=== PATIENT | male | born 2000 | race Caucasian/White ===

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

== ENCOUNTER → 2022-05-24 | Outpatient (CLI) | payer BC ==
[2022-05-24 23:56] LABS: Basophils # (A) 0.06 X 10*3/uL (0.00-0.10); Basophils % (A) 1.2 %; Eosinophils # (A) 0.09 X 10*3/uL (0.04-0.35); Eosinophils % (A) 1.8 %; HCT 44.8 % (39.6-50.0); HGB 15.1 g/dL (13.0-17.0); Immature Grans, Automated 0 %; Lymphocytes # (A) 2.09 X 10*3/uL (0.90-5.00); Lymphocytes % (A) 42.3 %; MCH 29.5 pg (27.0-32.0); MCHC 33.7 g/dL (32.0-37.0); MCV 87.5 fL (80.0-97.0); Mean Platelet Volume 10.5 fL (9.5-12.2); Monocytes # (A) 0.52 X 10*3/uL (0.20-1.00); Monocytes % (A) 10.5 %; NRBC Per 100 WBC 0 /100 WBCS (0.0-0.0); Neutrophils # (A) 2.18 X 10*3/uL (1.80-7.70); Neutrophils % (A) 44.2 %; Platelet Count 245 X 10*3/uL (140-440); RBC 5.12 X 10*6/uL (4.40-5.60); RDW 11.9 % (11.5-14.5); WBC 4.94 X 10*3/uL (4.50-10.00)
[2022-05-25 07:24] LABS: Appearance,Urine Clear (Clear); Bilirubin,Urine Negative (Negative); Blood,Urine Negative (Negative); Color,Urine Dark Yellow (Yellow); Ketones,Urine Trace mg/dL (Negative); Nitrite,Urine Negative (Negative); PH, Urine 6.5 (5.0-8.0); Specific Gravity,Urine 1.029 (1.001-1.030)
[2022-05-25 08:12] LABS: African American GFR (CKD) 112.7 (60.0-200.0); Albumin 4.6 g/dL (3.8-4.9); Albumin/Globulin Ratio 2.31 (1.60-3.17); Anion Gap 11.8 mmol/L (10.00-18.00); BUN/Creat Ratio 12.2 Ratio (12.00-20.00); Blood Urea Nitrogen 13.3 mg/dL (9.0-27.0); Calcium 9.7 mg/dL (8.7-10.3); Carbon Dioxide 24.3 mmol/L (20.0-27.5); Non-African American GFR(CKD) 97.2 (60.0-200.0); Potassium 4.2 mmol/L (3.5-5.5); T4, Free (Free Thyroxine) 1.02 ng/dL (0.830-1.430); Total Bilirubin 0.6 mg/dL (0.30-1.20); Total Protein 6.5 g/dL (6.2-8.2)
== END | disposition home or self-care (01) ==
LOC: LABWHC1 09:29
PROVIDERS: ATTEND Psychiatry & Neurology Psychiatry
DX: F31.81 Bipolar II disorder (principal); I49.9 Cardiac arrhythmia, unspecified
CPT/HCPCS: 36415; 80053; 81001; 84436; 84439; 84443; 85025; 93005

== ENCOUNTER → 2022-05-29 | Outpatient (CLI) | payer BC | END | disposition home or self-care (01) | LOC: LABWHC1 07:21 | PROVIDERS: ATTEND Psychiatry & Neurology Psychiatry | DX: F31.81 Bipolar II disorder (principal) | CPT/HCPCS: 36415; 80178 ==

== ENCOUNTER 2022-09-13 21:02 | Inpatient (IN) | payer BC ==
--- NOTE | 2022-09-13 22:47 | ED ---
General Adult HPI - General Chief complaint: Psychiatric Symptoms Stated complaint: Mental health Time Seen by Provider: 09/13/22 21:43 Source: patient, family, RN notes reviewed, old records reviewed Mode of arrival: ambulatory Limitations: no limitations - History of Present Illness Initial comments: Patient is a 22-year-old male who presents emergency Department complaining of suicidal ideations. Has a history of bipolar disorder. Presents with his parents. The last 2 weeks has been having thoughts of trying to commit suicide. Unknown why. States he has a plan but is unwilling to discuss the plan with anyone. Denies any attempts. Denies any previous attempts. Denies any homicidal ideations, attempts, plans. Denies any visual or auditory hallucinations. No other acute complaints at this time. Presents for psychiatric evaluation. This required inpatient psychiatric admission previously. Does have a therapist and psychiatrist. Has been compliant with medications. Is cooperative. - Related Data Home Medications Medication Instructions Recorded Confirmed Beclomethasone Dipropionate [Qvar 2 puff INHALATION RT-BID 12/11/16 12/11/16 40 mcg] Methylphenidate HCl 40 mg PO DAILY 12/11/16 12/11/16 [Methylphenidate HCl ER] Allergies Allergy/AdvReac Type Severity Reaction Status Date / Time No Known Allergies Allergy Verified 12/19/17 12:13 Review of Systems ROS Statement: Those systems with pertinent positive or pertinent negative responses have been documented in the HPI. Review of Systems: CONST: Denies fever EYES: Denies blurry vision ENT: Denies nasal congestion C/V: Denies Chest pain RESP: Denies shortness of breath GI: Denies abdominal pain : Denies dysuria SKIN: Denies rash. MSK: Denies joint pain. NEURO: Denies headache PSYCH: Denies homicidal ideations/plans/attempts. Denies visual or auditory hallucinations. He endorses suicidal ideations, plans. Denies attempt. ROS Other: All systems not noted in ROS Statement are negative. Past Medical History Past Medical History: Asthma Additional Past Medical History / Comment(s): ADHD Past Surgical History: No Surgical Hx Reported Past Psychological History: ADD/ADHD Past Alcohol Use History: None Reported Past Drug Use History: None Reported General Exam - General Exam Comments Initial Comments: General: Appears in no acute distress. HEAD: Normal with no signs of head trauma. EYES: PERRLA, EOMI, conjunctiva normal, no discharge. ENT: Hearing grossly intact, normal oropharynx. RESPIRATORY: Clear breath sounds bilaterally. No wheezes, rales, or rhonchi. C/V: Regular rate and rhythm. S1 and S2 auscultated, peripheral pulses 2+ and intact throughout ABD: Abd is soft, nontender, nondistended EXT: no obvious deformity SKIN: No rashes or lesions observed on exposed skin. NEURO: Alert and oriented 4. GCS of 15. Limitations: no limitations Course Vital Signs 09/13/22 09/13/22 21:28 22:47 Temperature 98.4 F Pulse Rate 73 86 Respiratory 18 16 Rate Blood Pressure 127/67 130/80 O2 Sat by Pulse 98 98 Oximetry Medical Decision Making - Medical Decision Making Was pt. sent in by a medical professional or institution (, PA, CAR BODY MECHANIC, urgent care, hospital, or custodial...) When possible be specific @ -No Did you speak to anyone other than the patient for history (EMS, parent, family, police, friend...)? What history was obtained from this source @ -Patient's father and mother also provided patient's past medical history including psychiatric diagnosis, as well as a recent past medical history of increasing suicidal ideations. Did you review nursing and triage notes (agree or disagree)? Why? @ -I reviewed and agree with nursing and triage notes Were old charts reviewed (outside hosp., previous admission, EMS record, old EKG, old radiological studies, urgent care reports/EKG's, custodial records)? Report findings @ -No old charts were reviewed Differential Diagnosis (chest pain, altered mental status, abdominal pain women, abdominal pain men, vaginal bleeding, weakness, fever, dyspnea, syncope, headache, dizziness, GI bleed, back pain, seizure, CVA, palpatations, mental health, musculoskeletal)? @ -Differential Mental Health Depression, anxiety, bipolar, psychosis, schizophrenia, borderline personality, situational depression, adjustment disorder, behavioral disorder, brain tumor, malingering, substance abuse, encephalopathy, medication reaction, dementia, hypothyroidism, degenerative neurologic disorder, lupus.... This is not meant to be all-inclusive list EKG interpreted by me (3pts min.). @ -None done X-rays interpreted by me (1pt min.). @ -None done CT interpreted by me (1pt min.). @ -None done U/S interpreted by me (1pt. min.). @ -None done What testing was considered but not performed or refused? (CT, X-rays, U/S, labs)? Why? @ -None What meds were considered but not given or refused? Why? @ -None Did you discuss the management of the patient with other professionals (professionals i.e. , PA, CAR BODY MECHANIC, lab, RT, psych nurse, social work instructor, channel worker, teacher, security flex utility officer, rehabilitation caseworker)? Give summary @ -EPS was notified the patient is medically cleared. Was smoking cessation discussed for >3mins.? @ -No Was critical care preformed (if so, how long)? @ -No Were there social determinants of health that impacted care today? How? (Homelessness, low income, unemployed, alcoholism, drug addiction, transportation, low edu. Level, literacy, decrease access to med. care, group home, rehab)? @ -No Was there de-escalation of care discussed even if they declined (Discuss DNR or withdrawal of care, Hospice)? DNR status @ -No What co-morbidities impacted this encounter? (DM, HTN, Smoking, COPD, CAD, Cancer, CVA, ARF, Chemo, Hep., AIDS, mental health diagnosis, sleep apnea, morbid obesity)? @ -History of bipolar disorder Was patient admitted / discharged? Hospital course, mention meds given and route, prescriptions, significant lab abnormalities, going to OR and other pert inent info. @ -Based on the patient's presentation and physical exam, he presents for psychiatric evaluation. Is suicidal. Suicide precautions place. Sitter was ordered. Patient was in green scrubs. BAT is 0. UDS is pending. Vital signs within acceptable limits. Exam is unremarkable. At this time, patient is medically cleared for evaluation by psychiatry. Disposition is pending psychiatric evaluation. EPS is notified. Patient evaluated by EPS. Admitted to inpatient psychiatry. Undiagnosed new problem with uncertain prognosis? @ -No Drug Therapy requiring intensive monitoring for toxicity (Heparin, Nitro, Insulin, Cardizem)? @ -No Were any procedures done? @ -No Diagnosis/symptom? @ -Encounter for psychiatric evaluation, suicidal ideation Acute, or Chronic, or Acute on Chronic? @ -Acute Uncomplicated (without systemic symptoms) or Complicated (systemic symptoms)? @ -Complicated Side effects of treatment? @ -No Exacerbation, Progression, or Severe Exacerbation? @ -No Poses a threat to life or bodily function? How? (Chest pain, USA, SD, pneumonia, PE, COPD, DKA, ARF, appy, cholecystitis, CVA, Diverticulitis, Homicidal, Suicidal, threat to staff... and all critical care pts) @ -yes - Lab Data Result diagrams: 09/14/22 00:29 09/14/22 00:29 Lab Results 09/13/22 09/13/22 09/14/22 Range/Units 22:45 22:45 00:28 WBC (4.0-11.0) k/uL RBC (4.30-5.90) m/uL Hgb (13.0-17.5) gm/dL Hct (39.0-53.0) % MCV (80.0-100.0) fL MCH (25.0-35.0) pg MCHC (31.0-37.0) g/dL RDW (11.5-15.5) % Plt Count (150-450) k/uL MPV Neutrophils % % Lymphocytes % % Monocytes % % Eosinophils % % Basophils % % Neutrophils # (1.3-7.7) k/uL Lymphocytes # (1.0-4.8) k/uL Monocytes # (0-1.0) k/uL Eosinophils # (0-0.7) k/uL Basophils # (0-0.2) k/uL Sodium (137-145) mmol/L Potassium (3.5-5.1) mmol/L Chloride (98-107) mmol/L Carbon Dioxide (22-30) mmol/L Anion Gap mmol/L BUN (9-20) mg/dL Creatinine (0.66-1.25) mg/dL Est GFR (CKD-EPI)AfAm (>60 ml/min/1.73 sqM) Est GFR (CKD-EPI)NonAf (>60 ml/min/1.73 sqM) Glucose (74-99) mg/dL Calcium (8.4-10.2) mg/dL Total Bilirubin (0.2-1.3) mg/dL AST (17-59) U/L ALT (4-49) U/L Alkaline Phosphatase (38-126) U/L Total Protein (6.3-8.2) g/dL Albumin (3.5-5.0) g/dL TSH (0.465-4.680) mIU/L Urine Color Light Yellow Urine Appearance Clear (Clear) Urine pH 7.0 (5.0-8.0) Ur Specific [place] 1.008 (1.001-1.035) Urine Protein Negative (Negative) Urine Glucose (UA) Negative (Negative) Urine Ketones Negative (Negative) Urine Blood Negative (Negative) Urine Nitrite Negative (Negative) Urine Bilirubin Negative (Negative) Urine Urobilinogen <2.0 (<2.0) mg/dL Ur Leukocyte Esterase Negative (Negative) Urine Opiates Screen Not Detected (NotDetected) Ur Oxycodone Screen Not Detected (NotDetected) Urine Methadone Screen Not Detected (NotDetected) Ur Propoxyphene Screen Not Detected (NotDetected) Ur Barbiturates Screen Not Detected (NotDetected) U Tricyclic Antidepress Not Detected (NotDetected) Ur Phencyclidine Scrn Not Detected (NotDetected) Ur Amphetamines Screen Not Detected (NotDetected) U Methamphetamines Scrn Not Detected (NotDetected) U Benzodiazepines Scrn Not Detected (NotDetected) [place] mmol/L Urine Cocaine Screen Not Detected (NotDetected) U Marijuana (THC) Screen Not Detected (NotDetected) Coronavirus (PCR) Not Detected (Not Detectd) 09/14/22 09/14/22 09/14/22 Range/Units 00:29 00:29 00:29 WBC 9.2 (4.0-11.0) k/uL RBC 5.15 (4.30-5.90) m/uL Hgb 15.8 (13.0-17.5) gm/dL Hct 44.7 (39.0-53.0) % MCV 86.9 (80.0-100.0) fL MCH 30.7 (25.0-35.0) pg MCHC 35.3 (31.0-37.0) g/dL RDW 11.7 (11.5-15.5) % Plt Count 236 (150-450) k/uL MPV 7.3 Neutrophils % 43 % Lymphocytes % 46 % Monocytes % 6 % Eosinophils % 2 % Basophils % 1 % Neutrophils # 3.9 (1.3-7.7) k/uL Lymphocytes # 4.2 (1.0-4.8) k/uL Monocytes # 0.6 (0-1.0) k/uL Eosinophils # 0.2 (0-0.7) k/uL Basophils # 0.1 (0-0.2) k/uL Sodium 137 (137-145) mmol/L Potassium 3.9 (3.5-5.1) mmol/L Chloride 106 (98-107) mmol/L Carbon Dioxide 24 (22-30) mmol/L Anion Gap 7 mmol/L BUN 11 (9-20) mg/dL Creatinine 0.85 (0.66-1.25) mg/dL Est GFR (CKD-EPI)AfAm >90 (>60 ml/min/1.73 sqM) Est GFR (CKD-EPI)NonAf >90 (>60 ml/min/1.73 sqM) Glucose 96 (74-99) mg/dL Calcium 9.5 (8.4-10.2) mg/dL Total Bilirubin 0.6 (0.2-1.3) mg/dL AST 27 (17-59) U/L ALT 21 (4-49) U/L Alkaline Phosphatase 67 (38-126) U/L Total Protein 7.2 (6.3-8.2) g/dL Albumin 4.4 (3.5-5.0) g/dL TSH 2.100 (0.465-4.680) mIU/L Urine Color Urine Appearance (Clear) Urine pH (5.0-8.0) Ur Specific [place] (1.001-1.035) Urine Protein (Negative) Urine Glucose (UA) (Negative) Urine Ketones (Negative) Urine Blood (Negative) Urine Nitrite (Negative) Urine Bilirubin (Negative) Urine Urobilinogen (<2.0) mg/dL Ur Leukocyte Esterase (Negative) Urine Opiates Screen (NotDetected) Ur Oxycodone Screen (NotDetected) Urine Methadone Screen (NotDetected) Ur Propoxyphene Screen (NotDetected) Ur Barbiturates Screen (NotDetected) U Tricyclic Antidepress (NotDetected) Ur Phencyclidine Scrn (NotDetected) Ur Amphetamines Screen (NotDetected) U Methamphetamines Scrn (NotDetected) U Benzodiazepines Scrn (NotDetected) [place] 0.3 mmol/L Urine Cocaine Screen (NotDetected) U Marijuana (THC) Screen (NotDetected) Coronavirus (PCR) (Not Detectd) Disposition Clinical Impression: Suicidal ideation, Encounter for psychiatric assessment Disposition: ADMITTED IP TO THIS HOSP Condition: Stable Time of Disposition: 03:27
[2022-09-13 23:15] LABS: Amphetamine Screen,Urine Not Detected (NotDetected); Barbiturate Screen,Urine Not Detected (NotDetected); Benzodiazepines Screen,Urine Not Detected (NotDetected); Cocaine Screen,Urine Not Detected (NotDetected); Methadone Screen, Urine Not Detected (NotDetected); Opiate Screen,Urine Not Detected (NotDetected); Oxycodone Screen, Urine Not Detected (NotDetected); Phencyclidine Screen,Urine Not Detected (NotDetected); Tricyclic Antidepressant,Urine Not Detected (NotDetected); Urn Cannabinoid Scrn Not Detected (NotDetected)
[2022-09-13] MEDS ORDERED: MAGNESIUM HYDROXIDE 2,400 MG/30 ML CUP PO PRN (23:56)
[2022-09-13] MEDS ORDERED: LORazepam 1 MG TAB PO PRN (23:56)
[2022-09-13] MEDS ORDERED: HALOPERIDOL LACTATE 5 MG/ML 1 ML VIAL IM PRN (23:56)
[2022-09-13] MEDS ORDERED: traZODone HCL 50 MG TAB PO PRN (23:56)
[2022-09-13] MEDS ORDERED: haloperidoL 5 MG TAB PO PRN (23:56)
[2022-09-13] MEDS ORDERED: IBUPROFEN 600 MG TAB PO PRN (23:56)
[2022-09-13] MEDS ORDERED: ACETAMINOPHEN TAB 325 MG TAB PO PRN (23:56)
[2022-09-13] MEDS ORDERED: MAG HYDROX/AL HYDROX/SIMETH 30 ML CUP PO PRN (23:56)
[2022-09-13] MEDS ORDERED: LORazepam 2 MG/ML INJ IM PRN (23:56)
[2022-09-14 00:49] LABS: Basophils # (A) 0.1 k/uL (0-0.2); Basophils % (A) 1 %; Eosinophils # (A) 0.2 k/uL (0-0.7); Eosinophils % (A) 2 %; HCT 44.7 % (39.0-53.0); HGB 15.8 gm/dL (13.0-17.5); Lymphocytes # (A) 4.2 k/uL (1.0-4.8); Lymphocytes % (A) 46 %; MCH 30.7 pg (25.0-35.0); MCHC 35.3 g/dL (31.0-37.0); MCV 86.9 fL (80.0-100.0); Mean Platelet Volume 7.3; Monocytes # (A) 0.6 k/uL (0-1.0); Monocytes % (A) 6 %; Neutrophils # (A) 3.9 k/uL (1.3-7.7); Neutrophils % (A) 43 %; Platelet Count 236 k/uL (150-450); RBC 5.15 m/uL (4.30-5.90); RDW 11.7 % (11.5-15.5); WBC 9.2 k/uL (4.0-11.0)
[2022-09-14 00:57] LABS: Appearance,Urine Clear (Clear); Bilirubin,Urine Negative (Negative); Blood,Urine Negative (Negative); Color,Urine Light Yellow; Glucose,Urine (UA) Negative (Negative); Ketones,Urine Negative (Negative); Leukocyte Esterase,Urine Negative (Negative); Nitrite,Urine Negative (Negative); Protein,Urine Negative (Negative); Specific Gravity,Urine 1.008 (1.001-1.035); Urobilinogen,Urine <2.0 mg/dL (<2.0)
[2022-09-14 01:06] LABS: ALT 21 U/L (4-49); AST 27 U/L (17-59); African American GFR (CKD) >90 (>60 ml/min/1.73 sqM); Albumin 4.4 g/dL (3.5-5.0); Alkaline Phosphatase 67 U/L (38-126); Anion Gap 7 mmol/L; Blood Urea Nitrogen 11 mg/dL (9-20); Calcium 9.5 mg/dL (8.4-10.2); Carbon Dioxide 24 mmol/L (22-30); Chloride 106 mmol/L (98-107); Glucose 96 mg/dL (74-99); Non-African American GFR(CKD) >90 (>60 ml/min/1.73 sqM); Potassium 3.9 mmol/L (3.5-5.1); Sodium 137 mmol/L (137-145); Total Bilirubin 0.6 mg/dL (0.2-1.3); Total Protein 7.2 g/dL (6.3-8.2)
[2022-09-14] MEDS ORDERED: NICOTINE 14MG/24HR PATCH TRANSDERM SCH (09:00)
[2022-09-14 09:16] LABS: Chol/HDL Ratio 2.67 Ratio; LDL Cholesterol,Calculated 56.4 mg/dL (0.0-131.0)
--- NOTE | 2022-09-14 13:09 | P.HP ---
Psychiatric H&P - . H&P Date: 09/14/22 History & Physical: Allergies Allergy/AdvReac Type Severity Reaction Status Date / Time No Known Allergies Allergy Verified 12/19/17 12:13 Vital Signs Temp 97.5 F L 09/14/22 03:55 Pulse 70 09/14/22 03:55 Resp 18 09/14/22 03:55 BP 128/70 09/14/22 03:55 Pulse Ox 99 09/14/22 03:55 FiO2 Intake & Output 09/13/22 09/14/22 09/14/22 18:59 06:59 18:59 Weight 62.8 kg Laboratory Last Values WBC 9.2 k/uL (4.0-11.0) 09/14/22 00:29 RBC 5.15 m/uL (4.30-5.90) 09/14/22 00:29 Hgb 15.8 gm/dL (13.0-17.5) 09/14/22 00:29 Hct 44.7 % (39.0-53.0) 09/14/22 00:29 MCV 86.9 fL (80.0-100.0) 09/14/22 00:29 MCH 30.7 pg (25.0-35.0) 09/14/22 00:29 MCHC 35.3 g/dL (31.0-37.0) 09/14/22 00:29 RDW 11.7 % (11.5-15.5) 09/14/22 00:29 Plt Count 236 k/uL (150-450) 09/14/22 00:29 MPV 7.3 09/14/22 00:29 Neutrophils % 43 % 09/14/22 00:29 Lymphocytes % 46 % 09/14/22 00:29 Monocytes % 6 % 09/14/22 00:29 Eosinophils % 2 % 09/14/22 00:29 Basophils % 1 % 09/14/22 00:29 Neutrophils # 3.9 k/uL (1.3-7.7) 09/14/22 00:29 Lymphocytes # 4.2 k/uL (1.0-4.8) 09/14/22 00:29 Monocytes # 0.6 k/uL (0-1.0) 09/14/22 00:29 Eosinophils # 0.2 k/uL (0-0.7) 09/14/22 00:29 Basophils # 0.1 k/uL (0-0.2) 09/14/22 00:29 Sodium 137 mmol/L (137-145) 09/14/22 00: Potassium 3.9 mmol/L (3.5-5.1) 09/14/22 00: Chloride 106 mmol/L (98-107) 09/14/22 00: Carbon Dioxide 24 mmol/L (22-30) 09/14/22 00:29 Anion Gap 7 mmol/L 09/14/22 00:29 BUN 11 mg/dL (9-20) 09/14/22 00:29 Creatinine 0.85 mg/dL (0.66-1.25) 09/14/22 00:29 Est GFR (CKD-EPI)AfAm >90 (>60 ml/min/1.73 sqM) 09/14/22 00: Est GFR (CKD-EPI)NonAf >90 (>60 ml/min/1.73 sqM) 09/14/22 00: Glucose 96 mg/dL (74-99) 09/14/22 00:[address] Glu mg/dL 97 mg/dL 09/14/22 00:29 Hemoglobin A1c 5.0 % (<=6.0) 09/14/22 00: Calcium 9.5 mg/dL (8.4-10.2) 09/14/22 00:29 Total Bilirubin 0.6 mg/dL (0.2-1.3) 09/14/22 00: AST 27 U/L (17-59) 09/14/22: ALT 21 U/L (4-49) 09/14/22 00:29 Alkaline Phosphatase 67 U/L (38-126) 09/14/22 00:29 Total Protein 7.2 g/dL (6.3-8.2) 09/14/22 00: Albumin 4.4 g/dL (3.5-5.0) 09/14/22 00:29 Triglycerides 171.00 mg/dL (0.00-149.00) H 09/14/22 00:29 Cholesterol 145.00 mg/dL (0.00-200.00) 09/14/22 00:29 LDL Cholesterol, Calc 56.4 mg/dL (0.0-131.0) 09/14/22 00:29 VLDL Cholesterol, Calc 34.20 mg/dL (5.00-40.00) 09/14/22 00:29 HDL Cholesterol 54.40 mg/dL (40.00-60.00) 09/14/22 00:29 Cholesterol/HDL Ratio 2.67 Ratio 09/14/22 00:29 TSH 2.100 mIU/L (0.465-4.680) 09/14/22 00:29 Urine Color Light Yellow 09/13/22 22:45 Urine Appearance Clear (Clear) 09/13/22 22:45 Urine pH 7.0 (5.0-8.0) 09/13/22 22:45 Ur Specific [place] 1.008 (1.001-1.035) 09/13/22 22:45 Urine Protein Negative (Negative) 09/13/22 22:45 Urine Glucose (UA) Negative (Negative) 09/13/22 22:45 Urine Ketones Negative (Negative) 09/13/22 22:45 Urine Blood Negative (Negative) 09/13/22 22:45 Urine Nitrite Negative (Negative) 09/13/22 22:45 Urine Bilirubin Negative (Negative) 09/13/22 22:45 Urine Urobilinogen <2.0 mg/dL (<2.0) 09/13/22 22:45 Ur Leukocyte Esterase Negative (Negative) 09/13/22 22:45 Urine Opiates Screen Not Detected (NotDetected) 09/13/22 22:45 Ur Oxycodone Screen Not Detected (NotDetected) 09/13/22 22:45 Urine Methadone Screen Not Detected (NotDetected) 09/13/22 22:45 Ur Propoxyphene Screen Not Detected (NotDetected) 09/13/22 22:45 Ur Barbiturates Screen Not Detected (NotDetected) 09/13/22 22:45 U Tricyclic Antidepress Not Detected (NotDetected) 09/13/22 22:45 Ur Phencyclidine Scrn Not Detected (NotDetected) 09/13/22 22:45 Ur Amphetamines Screen Not Detected (NotDetected) 09/13/22 22:45 U Methamphetamines Scrn Not Detected (NotDetected) 09/13/22 22:45 U Benzodiazepines Scrn Not Detected (NotDetected) 09/13/22 22:45 [place] 0.3 mmol/L 09/14/22 00:29 Urine Cocaine Screen Not Detected (NotDetected) 09/13/22 22:45 U Marijuana (THC) Screen Not Detected (NotDetected) 09/13/22 22:45 Coronavirus (PCR) Not Detected (Not Detectd) 09/14/22 00:28 09/14/22 12:56 Patient is a 22-year-old male who presents emergency Department complaining of suicidal ideations. History of present illness: Has a history of bipolar disorder. Presents with his parents. The last 2 weeks he has been having thoughts of trying to commit suicide by taking an knife and stabbing himself in the abdomen. He says he does not know why he feels this way but is a persistent pot that is very uncomfortable he's not sure he will intact on it. Denies any attempts. Denies any previous attempts. Denies any homicidal ideations, attempts, plans. Denies any visual or auditory hallucinations. He does have a therapist and psychiatrist. Has been compliant with medications except about 10 days ago he stopped taking his medicine for about 3 or 4 days but has been back on his medicines including the Lamictal for more than days and there is no sign of a rash. Is cooperative. Social history: The patient only child born to his parents are both alive and stayed together his father struggles with moods and with alcohol. 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 He probably has a superior IQ he could subtract 7 from 93 he abstracted that cats and snakes or animals with eyes and nose of the mouth and that there predator he got to racing on spelling world backward and flipped the O and R around, for the grass looks screen and outside offense he said appreciate what you had. He was dressed in a hospital gown. He came willingly to talk to me at good eye contact slightly pressured responses. Seen to be mcfp between manic and depressive in terms of his psychomotor activity and speed of response. Medications he is on lithium 600 his level point [address] subtherapeutic and he probably needs to run that up to at least 900. He also takes Lamictal at 100 and says that he has been on that for 10 days and so he doesn't think there is any risk of a rash. He admits to having stopped it for 3 days for no apparent reason. He is also on O data at 80 mg and also on Prozac. Assessment I think the Prozac is bright backfiring and stirring up the mood swings. I think he needs a higher lithium level and continue the other medicines at current dose. I think that he is currently a danger to himself, is constant voices and negative urges to stab yourself can lead to a person acting on it simply to get rid of the discomfort. Diagnosis bipolar mixed severe Plan stop the Prozac and get another lithium level and bump it up in that is still a 0.3 it's possible except 0.3 because he wasn't taking
[2022-09-14] MEDS ORDERED: ALBUTEROL INHALER 60 PUFF/8 GM INHALER (MHU) INHALATION PRN (14:09)
--- NOTE | 2022-09-14 14:11 | P.CONS ---
History of Present Illness - Reason for Consult Consult date: 09/14/22 - History of Present Illness Patient is a 22-year-old male with PMH of Asthma presents to [facility] for mental health concerns. He has been admitted to the mental health unit for further management of his symptoms. [facility] has been consulted for medical management of this patient. He has no complaints today. Pertinent positives and negatives as discussed in HPI, a complete review of systems was performed and all other systems are negative. General: non toxic, no distress, appears at stated age Derm: Warm, Dry Head: atraumatic, normocephalic, symmetric Eyes: EOMI, no lid lag, anicteric sclera Cardiovascular: S1S2 reg, no murmur Lungs: CTA bilateral, no rhonchi, no rales , no accessory muscle use Abdominal: soft, nontender to palpation, no guarding, no appreciable organomegaly Ext: no gross muscle atrophy, no edema, no contractures Neuro: CN II-XI grossly intact, no focal neuro deficits Psych: Alert, oriented, appropriate affect Asthma, stable Hypertriglyceridemia Based on my assessment of this patient, this patient meets a moderate complexity level of care. Patient has a new diagnosis of nausea and vomiting with uncertain prognosis. His symptoms are also concerning for sleep apnea. Asthma, stable: Albuterol inhaler as needed for SOB/wheezing. Hypertriglyceridemia: Low fat diet. I have reviewed the following net developer consultant notes: Psychiatry note reviewed. I have reviewed the results of the following tests: CBC and CMP is unremarkable. Hemoglobin A1c 5. TSH 2.1. Lipid panel shows triglyceride of 171. Urinalysis negative. UDS negative. [place] level 0.3. COVID-19 negative. I have ordered the following tests: I have discussed the care of this patient with the following independent historian: I have independently interpreted the following test below: I have discussed the management of this patient with the following physician: Past Medical History Past Medical History: Asthma Additional Past Medical History / Comment(s): ADHD History of Any Multi-Drug Resistant Organisms: None Reported Past Surgical History: No Surgical Hx Reported Past Anesthesia/Blood Transfusion Reactions: No Reported Reaction Past Psychological History: ADD/ADHD Past Alcohol Use History: None Reported Past Drug Use History: None Reported Medications and Allergies Home Medications Medication Instructions Recorded Confirmed Type FLUoxetine HCL 20 mg PO DAILY 09/14/22 09/14/[address] [place] Carbonate 600 mg PO HS 09/14/22 09/14/22 History Lurasidone [Latuda] 80 mg PO HS 09/14/22 09/14/22 History lamoTRIgine [LaMICtal] 150 mg PO DAILY 09/14/22 09/14/22 History Allergies Allergy/AdvReac Type Severity Reaction Status Date / Time No Known Allergies Allergy Verified 12/19/17 12:13 Physical Exam Vitals: Vital Signs Temp Pulse Pulse Resp BP BP Pulse Ox 09/14/22 03:55 97.5 F L 70 18 128/70 99 09/13/22 22:47 86 16 130/80 98 09/13/22 21:28 98.4 F 73 18 127/67 98 Intake and Output 09/13/22 09/14/22 09/14/22 22:59 06:59 14:59 Other: Weight 63.503 kg 62.8 kg Results CBC & Chem 7: 09/14/22 00:29 09/14/22 00:29 Labs: Abnormal Lab Results - Last 24 Hours (Table) 09/14/22 Range/Units 00:29 Triglycerides 171.00 H (0.00-149.00) mg/dL
[2022-09-14] MEDS: lamoTRIgine 100 MG TAB PO SCH (20:41)
[2022-09-14] MEDS: LITHIUM CARBONATE 300 MG CAP PO SCH (20:41)
[2022-09-14] MEDS ORDERED: LURASIDONE 80 MG TAB PO SCH (21:00)
[2022-09-15] MEDS ORDERED: FLUoxetine HCL 20 MG CAP PO SCH (09:00)
[2022-09-15 13:14] VITALS: BMI 18.8
[2022-09-15] MEDS ORDERED: traZODone HCL 50 MG TAB PO PRN (13:59)
--- NOTE | 2022-09-15 14:07 | P.PN ---
Progress Note - Text Progress Note Date: 09/15/22 Interval History: Patient was seen sitting in on group this afternoon and was directable and agr eeable to speak with technical proposal writer in the office. Patient was fairly concrete and was directable. He states that he is doing a bit better and believes that "I really don't need to be here in the hospital". He did state that he is feeling very suicidal before coming into the hospital. He states that he is not having the suicidal thoughts at this time. He asked several questions about his medication doses and interactions. He claims that his mood is more stable at this time, we spoke about other antidepressants that may help him instead of Prozac and he was agreeable to try Cymbalta, fair appetite. At this time patient denies any suicidal or homical ideations, intent or plan. Patient denies any current auditory, visual hallucinations and denies any paranoia or delusions. Patient denies any side effects from the medications and has been compliant with meds. Mental Status Exam: General Appearance: Patient appears to be thin, wearing glasses, stated age is alert, directable, and cooperative. Behavior: Patient is calmly seated without any agitated behavior. Fairly concrete. Speech: Patient's speech is fluent and nonpressured. Monotone Mood/Affect: Mood is improving mildly, affect is congruent and constricted. Suicidality/Homicidality: Patient denies having any suicidal or homicidal ideation intent or plan. Perceptions: Patient denies any visual hallucinations and denies any auditory hallucinations Though content/process: There is no evidence of any delusional thought content and thought process is linear and goal-directed. Focused on his symptoms and also discharge Memory and concentration: AOX3, grossly intact for the purposes of this session Judgment and insight: Improving mildly Assessment Bipolar disorder, mixed episode Plan: -Patient continues to meet criteria for inpatient psychiatric admission for symptom stabilization and safety. Patient has signed adult voluntary form and medication consent and was placed in patient's chart. -Medications: Continue with lithium 600 mg daily at bedtime for mood stabilization/suicidal thoughts, Lamictal 100 mg daily at bedtime for mood stabilization, Cymbalta 30 mg daily for mood/anxiety, trazodone 25 mg daily at bedtime when necessary for insomnia. changed latuda to 80 mg at 1800 for mood stabilization/psychosis. -When necessary Ativan and Haldol for agitation/aggression. -NRT - not needed as patient does not smoke. -SW on board for discharge planning. Encouraged the patient to participate in milieu.likely discharge in 1-2 days back home.
[2022-09-15] MEDS: DULoxetine HCL 30 MG CAPSULE.DR PO SCH (15:04)
[2022-09-15] MEDS: LURASIDONE 80 MG TAB PO SCH (17:54)
[2022-09-15] MEDS: lamoTRIgine 100 MG TAB PO SCH (18:34)
[2022-09-15] MEDS: LITHIUM CARBONATE 300 MG CAP PO SCH (18:34)
[2022-09-16 07:01] VITALS: RESP 16
[2022-09-16] MEDS: DULoxetine HCL 30 MG CAPSULE.DR PO SCH (09:32)
--- NOTE | 2022-09-16 11:44 | P.PN ---
Progress Note - Text Progress Note Date: 09/16/22 Interval History: Patient was seen wandering the hallways today and was directable and agreeable to speak with financial writer in the office. Patient was also in group earlier today participating. Patient was fairly concrete and was directable however was more engaged with financial writer today. He states that he is doing better during the day claims that his mood and anxiety are improving. He states that he is not having the suicidal thoughts at this time and is liking the medications the way they are at. claims that his appetite is fair. At this time patient denies any suicidal or homical ideations, intent or plan. Patient denies any current auditory, visual hallucinations and denies any paranoia or delusions. Patient denies any side effects from the medications and has been compliant with meds. Mental Status Exam: General Appearance: Patient appears to be thin, wearing glasses, stated age is alert, directable, and cooperative. Behavior: Patient is calmly seated without any agitated behavior. less concrete. pleasant Speech: Patient's speech is fluent and nonpressured. Monotone, improving Mood/Affect: Mood is improving mildly, affect is congruent and constricted. Suicidality/Homicidality: Patient denies having any suicidal or homicidal ideation intent or plan. Perceptions: Patient denies any visual hallucinations and denies any auditory hallucinations Though content/process: There is no evidence of any delusional thought content and thought process is linear and goal-directed. Memory and concentration: AOX3, grossly intact for the purposes of this session Judgment and insight: Improving mildly Assessment: Bipolar disorder, mixed episode Plan: -Patient continues to meet criteria for inpatient psychiatric admission for symptom stabilization and safety. Patient has signed adult voluntary form and medication consent and was placed in patient's chart. -Medications: Continue lithium 600 mg daily at bedtime for mood stabilization/suicidal thoughts, Lamictal 100 mg daily at bedtime for mood stabilization, Cymbalta 30 mg daily for mood/anxiety, trazodone 25 mg daily at bedtime for insomnia. latuda 80 mg at 1800 for mood stabilization/psychosis. -When necessary Ativan and Haldol for agitation/aggression. -NRT - not needed as patient does not smoke. -SW on board for discharge planning. Encouraged the patient to participate in milieu. likely discharge back home tomorrow. Sw to call parents and ensure safety at home and arrange for ride.
[2022-09-16] MEDS: LURASIDONE 80 MG TAB PO SCH (18:00)
[2022-09-16] MEDS: LITHIUM CARBONATE 300 MG CAP PO SCH (20:14)
[2022-09-16] MEDS: lamoTRIgine 100 MG TAB PO SCH (20:15)
[2022-09-16] MEDS ORDERED: traZODone HCL 50 MG TAB PO SCH (21:00)
[2022-09-17 07:03] VITALS: BP 95/51; PULSE 65; TEMP 97.6
[2022-09-17] MEDS: DULoxetine HCL 30 MG CAPSULE.DR PO SCH (08:46)
--- NOTE | 2022-09-17 09:00 | P.DS ---
Providers Date of admission: 09/14/22 02:03 Expected date of discharge: 09/17/22 Attending physician: Dillon Aceves MD Consults: 09/13/22 23:56 Consult Physician Routine Consulting Provider: Jeremy Physician Consult Reason/Comments: h and p Do you want consulting provider notified?: Yes, Notify in am Primary care physician: Reginaldo Navas - Discharge Diagnosis(es) (1) Bipolar disorder, current episode mixed Current Visit: Yes Status: Acute Priority: High Hospital Course: Admission HPI: Admission note was completed by Dr. Oliveira "Patient is a 22-year-old male who presents emergency Department complaining of suicidal ideations. Has a history of bipolar disorder. Presents with his parents. The last 2 weeks he has been having thoughts of trying to commit suicide by taking an knife and stabbing himself in the abdomen. He says he does not know why he feels this way but is a persistent pot that is very uncomfortable he's not sure he will intact on it. Denies any attempts. Denies any previous attempts. Denies any homicidal ideations, attempts, plans. Denies any visual or auditory hallucinations. He does have a therapist and psychiatrist. Has been compliant with medications except about 10 days ago he stopped taking his medicine for about 3 or 4 days but has been back on his medicines including the Lamictal for more than days and there is no sign of a rash. Is cooperative." Hospital course: Upon admission to the unit patient was [directable and agreeable to commence treatment and signed adult voluntary form]. Patient got along well with other patients on the unit and followed unit protocol. Patient was compliant with the medications and denied any side effects throughout hospital course. Patient was started on his home dose of Latuda 80 mg with dinner for mood stabilization, trazodone 25 mg qhs for insomnia/mood, home dose of lithium 600 mg qhs for mood stabilization/suicidal thoughts, lamictal 100 mg qhs for mood stabilization, d/c prozac and replaced with cymbalta 30 mg daily for mood/anxiety. Patient spoke of [his] stressors and engaged in therapy both group and individual. Patient was also seen by medical team for history and physical exam. [] Throughout the course of the hospitalization patient gradually improved with regards to [mood, anxiety], lability, suicidal thoughts, sleep and [returned back to their baseline level of functioning]. On the day of discharge patient denied any suicidal or homicidal ideations intent or plan denied any auditory or visual hallucinations. Patient endorsed wanting to live for [his future and family.] The patient denied any access to guns or weapons. Patient denied any paranoia and did not endorse any delusions. Patient does [not] have a significant history of substance abuse [and] was counseled on abstaining from all substances including alcohol and marijuana. Patient was also counseled on the medications and need for regular compliance and was encouraged to follow-up with their outpatient appointment for mental health and also for primary care. [Prior to discharge a family meeting will be arranged by social welfare administrator to answer any questions and ensure safety upon discharge.] Mental status exam: General Appearance: Patient appears to be [wearing glasses, ]stated age is alert, pleasant, and cooperative. Patient is in no acute distress and has improved hygiene and grooming Behavior: Patient is calmly seated without any agitated behavior. pleasant Speech: Patient's speech is fluent and nonpressured. Mood/Affect: Patient reports their mood is "[better]", affect is congruent Suicidality/Homicidality: Patient denies having any suicidal or homicidal ideation intent or plan. Perceptions: Patient denies any auditory or visual hallucinations. Though content/process: There is no evidence of any delusional thought content and thought process is linear and goal-directed. [more future oriented] Memory and concentration: AOX3, grossly intact for the purposes of this session. Can spell "WORLD" backwards correctly. Judgment and insight: [chronically poor, however has] improved with guarded prognosis Impression: Bipolar disorder mixed episode Plan: -Continue with discharge today as patient has improved and stabilized psychiatrically and is not currently an imminent threat to [himself] and/or others. [Patient will remain at chronically elevated risk for harm to self and/or others due to his impulsivity.] -Continue medications: Latuda 80 mg with dinner for mood stabilization, lamictal 100 mg qhs for mood stabilization. lithium 600 mg qhs for mood stabilization, cymbatla 30 mg daily for mood/anxiety, trazodone 25 mg qhs for insomnia/mood -Patient was counseled on the need for medication compliance and appropriate follow-up at mental health and also primary care for medical issues. Patient verbalized understanding and agreed. -Social work to [arrange for and conduct family meeting to ensure safety upon discharge and answer any questions/concerns.] Social work also to arrange for patients follow up appointments for psychiatric care along with follow up with primary care provider. -Patient counseled on abstaining from recreational drugs and marijuana and alcohol. Was informed/educated on the adverse effects on their physical and mental health. [Patient verbally agreed and understood] -Patient was instructed to return to the hospital or seek immediate medical care if their psychiatric or medical symptoms do worsen or reoccur. Allergies Allergy/AdvReac Type Severity Reaction Status Date / Time No Known Allergies Allergy Verified 12/19/17 12:13 Laboratory Results WBC 9.2 k/uL (4.0-11.0) 09/14/22 00:29 RBC 5.15 m/uL (4.30-5.90) 09/14/22 00:29 Hgb 15.8 gm/dL (13.0-17.5) 09/14/22 00: Hct 44.7 % (39.0-53.0) 09/14/22 00: MCV 86.9 fL (80.0-100.0) 09/14/22 00: MCH 30.7 pg (25.0-35.0) 09/14/22 00: MCHC 35.3 g/dL (31.0-37.0) 09/14/22 00:29 RDW 11.7 % (11.5-15.5) 09/14/22 00: Plt Count 236 k/uL (150-450) 09/14/22 00:29 MPV 7.3 09/14/22 00:29 Neutrophils % 43 % 09/14/22 00:29 Lymphocytes % 46 % 09/14/22 00:29 Monocytes % 6 % 09/14/22 00:29 Eosinophils % 2 % 09/14/22 00:29 Basophils % 1 % 09/14/22 00:29 Neutrophils # 3.9 k/uL (1.3-7.7) 09/14/22 00:29 Lymphocytes # 4.2 k/uL (1.0-4.8) 09/14/22 00: Monocytes # 0.6 k/uL (0-1.0) 09/14/22 00:29 Eosinophils # 0.2 k/uL (0-0.7) 09/14/22 00:29 Basophils # 0.1 k/uL (0-0.2) 09/14/22 00:29 Sodium 137 mmol/L (137-145) 09/14/22 00: Potassium 3.9 mmol/L (3.5-5.1) 09/14/22 00: Chloride 106 mmol/L (98-107) 09/14/22 00: Carbon Dioxide 24 mmol/L (22-30) 09/14/22 00:29 Anion Gap 7 mmol/L 09/14/22 00:29 BUN 11 mg/dL (9-20) 09/14/22 00:29 Creatinine 0.85 mg/dL (0.66-1.25) 09/14/22 00:29 Est GFR (CKD-EPI)AfAm >90 (>60 ml/min/1.73 sqM) 09/14/22 00: Est GFR (CKD-EPI)NonAf >90 (>60 ml/min/1.73 sqM) 09/14/22 00: Glucose 96 mg/dL (74-99) 09/14/22 00: Estimated Ave Glu mg/dL 97 mg/dL 09/14/22 00: Hemoglobin A1c 5.0 % (<=6.0) 09/14/22 00: Calcium 9.5 mg/dL (8.4-10.2) 09/14/22 00: Total Bilirubin 0.6 mg/dL (0.2-1.3) 09/14/22 00: AST 27 U/L (17-59) 09/14/22 00:29 ALT 21 U/L (4-49) 09/14/22 00:29 Alkaline Phosphatase 67 U/L (38-126) 09/14/22 00:29 Total Protein 7.2 g/dL (6.3-8.2) 09/14/22 00: Albumin 4.4 g/dL (3.5-5.0) 09/14/22 00:29 Triglycerides 171.00 mg/dL (0.00-149.00) H 09/14/22 00: Cholesterol 145.00 mg/dL (0.00-200.00) 09/14/22 00:29 LDL Cholesterol, Calc 56.4 mg/dL (0.0-131.0) 09/14/22 00:29 VLDL Cholesterol, Calc 34.20 mg/dL (5.00-40.00) 09/14/22 00:29 HDL Cholesterol 54.40 mg/dL (40.00-60.00) 09/14/22 00:29 Cholesterol/HDL Ratio 2.67 Ratio 09/14/22 00:29 TSH 2.100 mIU/L (0.465-4.680) 09/14/22 00:29 Urine Color Light Yellow 09/13/22 22:45 Urine Appearance Clear (Clear) 09/13/22 22:45 Urine pH 7.0 (5.0-8.0) 09/13/22 22:45 Ur Specific [place] 1.008 (1.001-1.035) 09/13/22 22:45 Urine Protein Negative (Negative) 09/13/22 22:45 Urine Glucose (UA) Negative (Negative) 09/13/22 22:45 Urine Ketones Negative (Negative) 09/13/22 22:45 Urine Blood Negative (Negative) 09/13/22 22:45 Urine Nitrite Negative (Negative) 09/13/22 22:45 Urine Bilirubin Negative (Negative) 09/13/22 22:45 Urine Urobilinogen <2.0 mg/dL (<2.0) 09/13/22 22:45 Ur Leukocyte Esterase Negative (Negative) 09/13/22 22:45 Urine Opiates Screen Not Detected (NotDetected) 09/13/22 22:45 Ur Oxycodone Screen Not Detected (NotDetected) 09/13/22 22:45 Urine Methadone Screen Not Detected (NotDetected) 09/13/22 22:45 Ur Propoxyphene Screen Not Detected (NotDetected) 09/13/22 22:45 Ur Barbiturates Screen Not Detected (NotDetected) 09/13/22 22:45 U Tricyclic Antidepress Not Detected (NotDetected) 09/13/22 22:45 Ur Phencyclidine Scrn Not Detected (NotDetected) 09/13/22 22:45 Ur Amphetamines Screen Not Detected (NotDetected) 09/13/22 22:45 U Methamphetamines Scrn Not Detected (NotDetected) 09/13/22 22:45 U Benzodiazepines Scrn Not Detected (NotDetected) 09/13/22 22:45 [place] 0.3 mmol/L 09/14/22 11:48 Urine Cocaine Screen Not Detected (NotDetected) 09/13/22 22:45 U Marijuana (THC) Screen Not Detected (NotDetected) 09/13/22 22:45 Coronavirus (PCR) Not Detected (Not Detectd) 09/14/22 00:28 Vital Signs Temp 97.6 F 09/17/22 06:36 Pulse 65 09/17/22 06:36 Resp 16 09/17/22 06:36 BP 95/51 09/17/22 06:36 Pulse Ox 97 09/16/22 06:00 FiO2 Patient Condition at Discharge: Stable Plan - Discharge Summary Discharge Rx Participant: Yes New Discharge Prescriptions: New DULoxetine HCL [Cymbalta] 30 mg PO DAILY 30 Days #30 cap traZODone HCL [Desyrel] 25 mg PO HS 30 Days #15 tab lamoTRIgine [LaMICtal] 100 mg PO HS 30 Days #30 tab Lurasidone [Latuda] 80 mg PO 1800 30 Days #30 tab Ibuprofen [Motrin] 600 mg PO Q6HR PRN tab PRN Reason: Moderate Pain (Scale 4 To 6) Albuterol Inhaler [Ventolin Hfa Inhaler] 1 puff INHALATION RT-QID PRN each PRN Reason: Shortness Of Breath Or Wheezing Continue [place] Carbonate 600 mg PO HS 30 Days #30 cap Discontinued lamoTRIgine [LaMICtal] 150 mg PO DAILY Lurasidone [Latuda] 80 mg PO HS FLUoxetine HCL 20 mg PO DAILY Discharge Medication List Albuterol Inhaler [Ventolin Hfa Inhaler] 1 puff INHALATION RT-QID PRN each [Rx] DULoxetine HCL [Cymbalta] 30 mg PO DAILY 30 Days #30 cap 09/17/22 [Rx] Ibuprofen [Motrin] 600 mg PO Q6HR PRN tab 09/17/22 [Rx] [place] Carbonate 600 mg PO HS 30 Days #30 cap 09/17/22 [Rx] Lurasidone [Latuda] 80 mg PO 1800 30 Days #30 tab 09/17/22 [Rx] lamoTRIgine [LaMICtal] 100 mg PO HS 30 Days #30 tab 09/17/22 [Rx] traZODone HCL [Desyrel] 25 mg PO HS 30 Days #15 tab 09/17/22 [Rx] Follow up Appointment(s)/Referral(s): [facility] [Other] - 09/18/22 9:15 am (with Blair) [place] [Other] - 09/30/22 9:00 am (with Dr. Milan ) Reginaldo Navas MD [Primary Care Provider] - 1-2 days Activity/Diet/Wound Care/Special Instructions: Avoid the use of street drugs and alcohol. Take all medications as prescribed. When you are in need of refills on your medications, please contact your medical provider and/or outpatient psychiatrist/provider to have this done. Please go to your scheduled outpatient appointment for aftercare treatment. If symptoms return or become worse, call the crisis line at and/or go to the nearest emergency room for evaluation. National Suicide Hotline 278. Discharge Disposition: HOME SELF-CARE
== END 2022-09-17 11:40 | disposition home or self-care (01) | DRG 885 ==
LOC: EC 21:02 → 3MHU 09-14 02:03
PROVIDERS: ADMIT Psychiatry & Neurology Psychiatry; ATTEND Psychiatry & Neurology Psychiatry
DX: F31.63 Bipolar disorder, current episode mixed, severe, without psychotic features (principal); R45.851 Suicidal ideations; J45.909 Unspecified asthma, uncomplicated; E78.1 Pure hyperglyceridemia; G47.30 Sleep apnea, unspecified; F41.9 Anxiety disorder, unspecified; Z20.822 Contact with and (suspected) exposure to COVID-19; Z79.51 Long term (current) use of inhaled steroids; Z88.8 Allergy status to other drugs, medicaments and biological substances; Z79.899 Other long term (current) drug therapy
CPT/HCPCS: 36415; 80053; 80061; 80178; 80306; 81003; 82075; 83036; 84443; 85025; 87635; 99285

== ENCOUNTER → 2022-09-25 | Outpatient (CLI) | payer BC ==
[2022-09-25 11:37] LABS: Amorphous Sediment,Urine Moderate /hpf; Appearance,Urine Cloudy (Clear); Bilirubin,Urine Negative (Negative); Blood,Urine Negative (Negative); Color,Urine Yellow; Glucose,Urine (UA) Negative (Negative); Ketones,Urine Negative (Negative); Leukocyte Esterase,Urine Negative (Negative); Mucus,Urine Rare /hpf; Nitrite,Urine Negative (Negative); PH, Urine 7.5 (5.0-8.0); Protein,Urine Trace (Negative); RBC,Urine 1 /hpf (0-5); Squamous Epithelial Cell,Urine <1 /hpf (0-4); Urobilinogen,Urine <2.0 mg/dL (<2.0); WBC,Urine <1 /hpf (0-5)
[2022-09-25 16:18] LABS: Blood Urea Nitrogen 8.8 mg/dL (9.0-27.0); Carbon Dioxide 25.3 mmol/L (21.6-31.8); Chloride 105 mmol/L (96-109); Glucose 91 mg/dL (70-110); Potassium 4.4 mmol/L (3.5-5.5); Sodium 141 mmol/L (135-145)
== END | disposition home or self-care (01) ==
LOC: LABWHC1 09:50
PROVIDERS: ATTEND Psychiatry & Neurology Psychiatry
DX: F31.81 Bipolar II disorder (principal)
CPT/HCPCS: 36415; 80048; 80178; 81001

== ENCOUNTER → 2022-11-19 | Outpatient (CLI) | payer BC ==
[2022-11-19 11:06] LABS: Basophils # (A) 0.08 X 10*3/uL (0.00-0.10); Basophils % (A) 1.2 %; Eosinophils # (A) 0.29 X 10*3/uL (0.04-0.35); Eosinophils % (A) 4.2 %; HCT 48.7 % (39.6-50.0); HGB 15.9 d/dL (13.0-17.0); Lymphocytes # (A) 2.36 X 10*3/uL (0.90-5.00); Lymphocytes % (A) 34.2 %; MCHC 32.6 d/dL (32.0-37.0); MCV 88.7 FL (80.0-97.0); Monocytes # (A) 0.73 X 10*3/uL (0.20-1.00); Monocytes % (A) 10.6 %; NRBC Per 100 WBC 0 X 10*3/uL (0.00-0.01); Neutrophils # (A) 3.42 X 10*3/uL (1.80-7.70); Neutrophils % (A) 49.5 %; Platelet Count 272 X 10*3/uL (140-440); RBC 5.49 X 10*6/uL (4.40-5.60); RDW 11.7 % (11.5-14.5)
[2022-11-19 11:24] LABS: ALT 44 U/L (10-49); AST 26 U/L (14-35); Albumin 4.8 d/dL (3.8-4.9); Albumin/Globulin Ratio 2.18 Ratio (1.60-3.17); Alkaline Phosphatase 58 U/L (41-126); Blood Urea Nitrogen 10.4 mg/dL (9.0-27.0); Calcium 10.3 mg/dL (8.7-10.3); Carbon Dioxide 27.8 mmol/L (21.6-31.8); Chloride 104 mmol/L (96-109); Globulin 2.2 d/dL (1.6-3.3); Glucose 105 mg/dL (70-110); Potassium 4.5 mmol/L (3.5-5.5); Sodium 142 mmol/L (135-145); Total Bilirubin 0.4 mg/dL (0.3-1.2)
[2022-11-19 11:33] LABS: Appearance,Urine Clear (Clear); Bilirubin,Urine Negative (Negative); Blood,Urine Negative (Negative); Color,Urine Yellow (Yellow); Ketones,Urine Negative (Negative); Nitrite,Urine Negative (Negative); PH, Urine 7.5; Specific Gravity,Urine 1.012 (1.001-1.030); Urobilinogen,Urine 0.2 E.U./DL
== END | disposition home or self-care (01) ==
LOC: LABWHC1 07:25
PROVIDERS: ATTEND Psychiatry & Neurology Psychiatry
DX: F31.81 Bipolar II disorder (principal)
CPT/HCPCS: 36415; 80053; 80178; 81003; 85025

== ENCOUNTER → 2023-01-09 | Outpatient (CLI) | payer BC | END | disposition home or self-care (01) | LOC: LABWHC1 13:06 | PROVIDERS: ATTEND Psychiatry & Neurology Psychiatry | DX: Z53.9 Procedure and treatment not carried out, unspecified reason (principal) ==

== ENCOUNTER → 2023-01-12 | Outpatient (CLI) | payer BC ==
[2023-01-12 10:43] LABS: Basophils % (A) 1.5 %; Eosinophils # (A) 0.22 X 10*3/uL (0.04-0.35); Eosinophils % (A) 3.4 %; HGB 15.7 g/dL (13.0-17.0); Lymphocytes # (A) 2.04 X 10*3/uL (0.90-5.00); Lymphocytes % (A) 31.5 %; MCH 29.8 pg (27.0-32.0); MCHC 33.4 g/dL (32.0-37.0); MCV 89.2 FL (80.0-97.0); Mean Platelet Volume 9.6 FL (9.5-12.2); Monocytes # (A) 0.66 X 10*3/uL (0.20-1.00); Monocytes % (A) 10.2 %; NRBC Per 100 WBC 0 X 10*3/uL (0.00-0.01); Neutrophils # (A) 3.44 X 10*3/uL (1.80-7.70); Neutrophils % (A) 53.2 %; Platelet Count 285 X 10*3/uL (140-440); RBC 5.27 X 10*6/uL (4.40-5.60); RDW 11.5 % (11.5-14.5); WBC 6.47 X 10*3/uL (4.50-10.00)
[2023-01-12 11:03] LABS: ALT 26 U/L (10-49); AST 22 U/L (14-35); Albumin 4.7 g/dL (3.8-4.9); Albumin/Globulin Ratio 2.24 Ratio (1.60-3.17); Alkaline Phosphatase 58 U/L (41-126); Blood Urea Nitrogen 7.4 mg/dL (9.0-27.0); Calcium 10.2 mg/dL (8.7-10.3); Carbon Dioxide 27.1 mmol/L (21.6-31.8); Chloride 105 mmol/L (96-109); Globulin 2.1 g/dL (1.6-3.3); Glucose 105 mg/dL (70-110); Potassium 4.2 mmol/L (3.5-5.5); Sodium 141 mmol/L (135-145); Total Bilirubin 0.7 mg/dL (0.3-1.2); Total Protein 6.8 g/dL (6.2-8.2)
[2023-01-12 11:20] LABS: Appearance,Urine Clear (Clear); Bilirubin,Urine Negative (Negative); Blood,Urine Negative (Negative); Color,Urine Yellow (Yellow); Ketones,Urine Negative (Negative); Nitrite,Urine Negative (Negative); PH, Urine 7.5; Specific Gravity,Urine 1.019 (1.001-1.030)
== END | disposition home or self-care (01) ==
LOC: LABWHC1 07:43
PROVIDERS: ATTEND Psychiatry & Neurology Psychiatry
DX: F31.81 Bipolar II disorder (principal)
CPT/HCPCS: 36415; 80053; 80178; 81003; 85025